=== PATIENT | female | born 2000 | race Caucasian/White ===

== ENCOUNTER 2019-07-15 13:49 | Emergency (ER) | payer SELFPAY ==
[~2019-07-15] VITALS: Ht 154.9 cm; Wt 45.0 kg
[2019-07-15] MEDS ORDERED: IBUPROFEN 400MG TABLET PO ONE (15:00)
[2019-07-15 16:27] VITALS: BP 110/90
== END 2019-07-15 16:32 | disposition home or self-care (01) ==
LOC: ER 13:49
DX: J06.9 Acute upper respiratory infection, unspecified (principal); J45.909 Unspecified asthma, uncomplicated
CPT/HCPCS: 71045; 81025; 87070; 87077; 87430; 99284